=== PATIENT | female | born 1995 | race African-American/Black ===

== ENCOUNTER 2017-04-14 22:31 | Emergency (ER) | payer SELFPAY ==
--- NOTE | 2017-04-15 07:42 | ULT ---
PRELIMINARY REPORT/[facility]/EMERGENCY AFTER HOURS PROCEDURE: EXAM: US Duplex Right Upper Extremity Veins EXAM DATE/TIME: Exam ordered 04/14/2017 11:54 PM CLINICAL HISTORY: 22 years old, female; Pain; Arn, upper; Right; Patient HX: Rt arm pain mostly at elbow x 1 day TECHNIQUE: Real-time ultrasound scan of the veins of the right upper extremity with color Doppler flow, spectral waveform analysis and compression. COMPARISON: No relevant prior studies available. FINDINGS: Deep veins: Unremarkable. No DVT in the internal jugular, subclavian, axillary, or brachial veins. The veins demonstrate normal color flow, are normally compressible, with normal phasic flow and/or au gmentation response. Superficial veins: Unremarkable. No thrombus in the visualized basilic and cephalic veins. Soft tissues: No acute findings. IMPRESSION: Normal right upper extremity duplex venous ultrasound. Thank you for allowing us to participate in the care of your patient. Dictated and Authenticated by: Brad Rebollar MD 04/15/2017 12:43 AM Central Time ([place] & [place]) FINAL REPORT VENOUS DOPPLER ULTRASOUND RIGHT UPPER EXTREMITY: I agree with the preliminary report given by Dr. Brad Rebollar of [facility]. POS: [facility]
== END 2017-04-15 01:02 | disposition home or self-care (01) ==
LOC: ERS 22:31
DX: M79.601 Pain in right arm (principal); G43.909 Migraine, unspecified, not intractable, without status migrainosus; J45.909 Unspecified asthma, uncomplicated; F90.9 Attention-deficit hyperactivity disorder, unspecified type

== ENCOUNTER 2020-06-12 15:23 | Outpatient (CLI) | payer OTHER ==
--- NOTE | 2020-06-12 15:39 | RAD ---
LEFT KNEE TWO VIEW: 06/12/20 HISTORY: Disability exam. COMPARISON: None. FINDINGS: Small volume medial compartment osteophyte formation. Mild genu varus. No acute fracture or malalignm ent. No significant joint effusion. IMPRESSION: 1. No acute osseous abnormality. 2. Mild genu varus with small volume medial compartment osteophytes. POS: [facility]
== END 2020-06-12 15:24 | disposition home or self-care (01) ==
LOC: BICRAD 15:23
PROVIDERS: ATTEND Internal Medicine
DX: Z02.71 Encounter for disability determination (principal); M21.162 Varus deformity, not elsewhere classified, left knee; M25.78 Osteophyte, vertebrae

== ENCOUNTER 2022-03-15 11:59 | Emergency (ER) | payer SELFPAY ==
[2022-03-15 12:48] LABS: #Eosinphils 0.1 thou/uL (0.0-0.7); #Lymphocytes 1.9 thou/uL (1.20-3.40); #Monocytes 0.5 thou/uL (0.11-0.59); #Neutrophils 3.1 thou/uL (1.40-6.50); %Basophils 0.2 % (0.0-1.0); %Eosinophils 1.7 % (0.0-10.0); %Lymphocytes 34.1 % (21.0-51.0); %Monocytes 8.5 % (0.0-10.0); %Neutrophils 55.6 % (42.0-75.0); Mean Corpuscular HGB CONC 31.3 g/dL (32.0-36.0); Mean Corpuscular Hemoglobin 29.6 pg (27.0-31.0); Mean Corpuscular Volume 94.8 fl (78.0-98.0); Mean Platelet Volume 7.1 fL (7.4-10.4); Platelet Count 480 10x3/uL (130-400); RBC Distribution Width 12.4 % (11.5-14.5); Red Blood Cell (RBC) Count 4.06 mill/uL (4.20-5.40); White Blood Cell (WBC) Count 5.5 10x3/uL (4.8-10.8)
[2022-03-15 13:03] LABS: ALT (SGPT) 17 U/L (8-55); AST (SGOT) 13 U/L (5-34); Alkaline Phosphatase 64 U/L (40-110); Anion Gap 13 mmol/L (10-20); BUN (Urea Nitrogen) 6 mg/dL (7.0-18.7); Bilirubin, Total 0.6 mg/dL (0.2-1.2); Calc. Creatinine Clearance 0 mL/min (70-130); Calcium 9.4 mg/dL (7.8-10.44); Carbon Dioxide 19 mmol/L (22-29); Chloride 104 mmol/L (98-107); Estimated GFR 126; Globulin 3.5 g/dL (2.4-3.5); Glucose 94 mg/dL (70-105); Potassium 3.8 mmol/L (3.5-5.1); Protein, Total 7.5 g/dL (6.0-8.3); Sodium 132 mmol/L (136-145)
[2022-03-15 13:55] LABS: Bilirubin Negative (Negative); Blood, Urine Negative (Negative); Glucose, Urine (Dipstick) Negative (Negative); Ketone, Urine Negative (Negative); Leukocyte Negative (Negative); Nitrite Negative (Negative); Protein, Urine (Dipstick) 100 mg/dL (Neg-Trace)
[2022-03-15 13:58] LABS: Clarity Hazy (Clear); Specific Gravity, Urine 1.015 (1.002-1.036)
[2022-03-15 14:04] LABS: Bacteria/HPF 1+ HPF (None Seen); RBC/HPF 0-3 HPF (0-3); WBC/HPF 0-3 HPF (0-3)
== END 2022-03-15 17:00 | disposition home or self-care (01) ==
LOC: ERS 11:59
DX: J11.1 Influenza due to unidentified influenza virus with other respiratory manifestations (principal)
CPT/HCPCS: 36415; 80053; 81003; 81015; 84702; 85025; 86900; 86901